=== PATIENT | male | born 1965 | race Caucasian/White ===

== ENCOUNTER 2023-07-31 00:07 | Emergency (ER) | payer OTHER, SELFPAY ==
[2023-07-31 00:11] VITALS: BP 180/93; PULSE 66; RESP 18; TEMP 36.7; O2SAT 97; BMI 23.1
--- NOTE | 2023-07-31 00:38 | ED_ITS ---
HPI - Dental/Oral General Chief complaint: Dental/Oral Stated complaint: dental pain/left side x2 weeks Time Seen by Provider: 07/31/23 00:38 Source: patient Mode of arrival: Ambulatory Limitations: no limitations History of Present Illness HPI Narrative: 57-year-old male with complaint of dental pain for the left side for past 2 weeks. Patient states he cracked the crown over his tooth while eating a cashew about 2 weeks ago. Went to see the dentist has had 2 visits and has scheduled to have his tooth extracted on August 29. Patient states he was starting to have some mild pain but significantly increased in the last 24-48 hours. No fevers, swelling or purulent drainage that he is appreciated. He states the pain is starting to move forward. Patient denies any other symptoms. Denies any daily prescription medications. Does use tobacco, does have a dentist that he is seen twice med plans to call 1st thing in the morning. He tried Tylenol at about 8:00 p.m. which was minimally helpful. Related Data Previous Rx's Medication Instructions Recorded hydrocodone 5 mg-acetaminophen 325 1 tab PO Q6H PRN pain #10 tabs 07/31/23 mg tablet penicillin V potassium 500 mg 500 mg PO Q6H 10 days #40 tabs 07/31/23 tablet Review of Systems Review of Systems ROS Unobtainable: All systems reviewed & are unremarkable except as noted in HPI and below Exam Narrative Exam Narrative: GEN: well nourished, well appearing male, alert and oriented x 3, patient appears to be in mild distress. HEENT: Atraumatic, pupils are equal round reactive to light, extraocular mov ements are intact, nares are clear, TMS are clear, there is no conjunctival pallor. Throat is clear without any exudates, erythema, tonsillar enlargement or uvular deviation, patient posterior left lower molar appears cracked and discolored. There is some mild swelling and erythema but no significant fluid collection. No swelling of the lips, tongue or airway, no swelling of the face or cheeks. Patient has normal speech. No stridor difficulty with saliva or secretions. HEART: Regular rate and rhythm without murmur, clicks, rubs. LUNGS:Lungs clear to auscultation, no wheezes, rales, crackles, chest moves symmetrically ABD:bowel sounds normal, soft, non-tender, no guarding, rebound, rigidity, no masses noted, no hepatosplenomegaly MSCL: Non-tender, no muscle atrophy, muscles strength 5/5 upper and lower extremities, full range of motion, normal gait NEURO:CN 2-12 intact, sensation normal. Initial Vital Signs Initial Vital Signs: Vital Signs Temperature 98.1 F 07/31/23 00:11 Pulse Rate 66 07/31/23 00:11 Respiratory Rate 18 07/31/23 00:11 Blood Pressure 180/93 H 07/31/23 00:11 Pulse Oximetry 97 07/31/23 00:11 Oxygen Delivery Method Room Air 07/31/23 00:11 Course Orders Ordered: Discontinued Medications Hydrocodone Bitart/Acetaminophen (Hydrocodone/Acet 5/325 Prepack) 1 bottle MISC DIRECTED ONE Stop: 07/31/23 00:52 Last Admin: 07/31/23 01:01 Dose: 1 bottle Documented By: TYRA Penicillin V Potassium (Penicillin 250 Mg Tab Prepack) 1 bottle MISC DIRECTED ONE Stop: 07/31/23 00:52 Last Admin: 07/31/23 01:01 Dose: 1 bottle Documented By: TYRA Vital Signs Vital signs: Vital Signs - 8 hr 07/31/23 00:11 Temperature 98.1 F Pulse Rate 66 Respiratory Rate 18 Blood Pressure 180/93 H Pulse Oximetry 97 Oxygen Delivery Method Room Air MDM - Dental/Oral MDM Narrative Medical decision making narrative: 57-year-old male with dental pain with a obviously cracked tooth he is already seen the dentist scheduled for extraction but not for 4 more weeks. Patient has had increased pain has some very mild swelling around the edge we will cover with dose of oral antibiotic and short course of pain medication with plan for patient to contact his dentist for extraction sooner. Discussed return precautions all questions. Discharge Plan Departure Patient Disposition: Home Clinical Impression: Pain, dental Instructions: DI for Dental Pain Activity Restrictions/Additional Instructions: Follow up with your dentist for extraction of your tooth. Take antibiotics until completed. You may take ibuprofen up to 600 mg every 6 hours as needed for pain. You may also take narcotic pain medication 1-2 tablets every 6 hours as needed. This medication can make you sleepy do not drive, perform hazardous activities or make any major decisions while taking it. This medication will make you consti pated please take a stool softener once to twice daily until stools are soft and regular. Prescription sent to [facility] in [place]. Please return for fevers, new redness, swelling of the face, tongue or airway, difficulty with swallowing, persistent vomiting, other new or concerning changes. Prescriptions: New penicillin V potassium 500 mg tablet 500 mg PO Q6H 10 Days Qty: 40 0RF hydrocodone-acetaminophen 5-325 mg tablet 1 tab PO Q6H PRN (Reason: pain) Qty: 10 0RF Stand Alone Forms: Patient Portal/API
[2023-07-31] MEDS: PENICILLIN 250 MG TAB PREPACK 1 BOTTLE MISC (01:01)
[2023-07-31] MEDS: HYDROCODONE/ACET 5/325 PREPACK 1 BOTTLE MISC (01:01)
== END 2023-07-31 01:06 | disposition home or self-care (01) ==
PROVIDERS: Emergency Provider Emergency Medicine
DX: K08.89 Other specified disorders of teeth and supporting structures (principal)
CPT/HCPCS: 99281; 99283